=== PATIENT | female | born 1945 | race African-American/Black ===

== ENCOUNTER → 2017-03-13 | Outpatient (CLI) | payer OTHER, MEDICARE ==
[~2017-03-13] VITALS: Ht 170.2 cm; Wt 84.8 kg
[~2017-03-13] MED LIST: ADULT LOW DOSE81 MG; ADULT LOW DOSE81 MG PO; ASA5UEC; ASPIRIN EC81 M1 PO; ATENOLOL 25MG T25 M1 PG; ATENOLOL 25MG T25 M1 PO; BACTRIM DS TAB1 EACH PO; CALCIUM 600 WI1 EAC5 PO; CRESTOR10 MG PO; FISH OIL300 MG PO; GLUCOPHAGE500 MG PO; KLOR-CON 1010 MEQ PO; LEVEMIR SUBQ; NORCO 5-325 TA1 EACH PO; PRILOSEC 20 MG20 MG PO; PRINIVIL10 MG PO; VALIUM2 MG PO; VITAMIN D400 UNI1 PO; VITAMINC500 PO
--- NOTE | ~2017-03-13 | S ---
[facility] [place] [address] SURGICAL PATH RPT PROCEDURE Name: CAROL SWEENEY Room #: REG [facility]#: [id number] Admission: 03/13/17 Date of : 43 Discharge: Report #: [id number] Path Case #: [id number] PATHOLOGY REPORT COLLECTION DATE: 03/13/2017 RECEIVED DATE: 03/13/2017 SUBMITTING PHYS: Dr. Huey Husain OTHER PHYS: Dr. Elena Carmona ADDENDUM REPORT (Order Date: 03/14/2017 00:00) ADDENDUM COMMENT: Please see next page for scanned image of report submitted by [facility] corporate travel consultant pathologist, Dr. Jose Mercado. (IUV:amj; d/t: 04/10/2017) ELECTRONICALLY SIGNED BY: Nellie Ohara M.D. DATE/TIME:04/10/2017 12:48 SPECIMEN(S) RECEIVED: A.Lt kidney * * * * * * * * * * * * FINAL DIAGNOSIS: A. Kidney, left kidney, needle core biopsy: - Chronic interstitial nephritis, see comment. 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 - Interstitial fibrosis and tubular atrophy, moderate to severe. - Arteriosclerosis, severe. COMMENT: Possible etiologies of chronic interstitial nephritis include drug-induced hypersensitivity reaction as well as auto immune-laden disease. There is also a component of arterionephrosclerosis present in the background. This case was diagnosed at [facility]. Their report is [id number]. Please see separate report for details. (IUV:db; 04/10/2017) PATHOLOGIST: Nellie Ohara M.D. REPORT ELECTRONICALLY SIGNED BY: Nellie Ohara M.D. DATE/TIME: 04/10/2017 12:47 * * * * * * * * * * * * GROSS PATHOLOGY: [facility] [place] [address] SURGICAL PATH RPT PROCEDURE Name: [facility]EL[facility]OL [id number]: [facility] Date of : 43 Discharge: Report #: [id number] Path Case #: [id number] A. The specimen is received in formalin labeled "Carol Sweeney, left renal biopsy 1". Received is a needle core of pale pandya soft tissue measuring 1.2 cm in length by 0.1 cm in diameter. The specimen is forwarded to an outside laboratory for further processing. B. The specimen is received in Tha's fixative, labeled "Carol Sweeney, left renal biopsy 2". Received are 2 needle cores of pale pandya soft tissue measuring 0.8 and 1.5 cm in length, with each measuring 0.1 cm in diameter. The specimen is forwarded to an outside laboratory for direct medial fluorescence studies. (CAA; 03/13/2017) CLINICAL HISTORY: Acute renal failure, possible tubular neoplasm INITIAL CPT CODE(S): A; 50452 Professional services performed by [facility] at [address] [place] [address] Technical services performed by [facility] at [address] [place] [address], [address], [place] [address]. [facility] [address] [place] [address] PHONE: [phone] DIRECTOR: Luis Crocker M.D. * * * END OF REPORT * * *
[2017-03-13 10:00] VITALS: BP 179/79
[2017-03-13 10:28] LABS: ABSOLUTE NEUTROPHILS 3.9 thou/uL (1.4-8.2); BASOPHILS 0.5 % (0.0-2.0); EOSINOPHILS 2.4 % (0.0-3.0); HEMATOCRIT 22.7 % (37.0-47.0); HEMOGLOBIN 7.8 gm/dL (12.0-15.0); LYMPHOCYTES 39.1 % (24.0-44.0); MCH 31.7 pg (26.0-34.0); MCHC 34.3 g/dL (28.0-37.0); MCV 92.3 fL (80.0-100.0); MONOCYTES 6.3 % (1.0-8.0); PLATELET COUNT 203 thou/uL (150-400); POLYS 51.7 % (36.0-66.0); RBC 2.46 mil/uL (4.20-5.00); RDW 12.6 % (10.5-14.5); WBC 7.6 thou/uL (4.0-11.0)
[2017-03-13 10:32] LABS: MANUAL DIFF NO
[2017-03-13 10:38] VITALS: BP 165/71
[2017-03-13 11:14] VITALS: BP 144/74
[2017-03-13 11:32] VITALS: BP 140/58
[2017-03-13 11:36] VITALS: BP 159/73
[2017-03-13 11:41] VITALS: BP 131/62
== END | disposition home or self-care (01) ==
LOC: LAB 08:57
PROVIDERS: Internal Medicine Nephrology
DX: N17.0 Acute kidney failure with tubular necrosis (principal); I10 Essential (primary) hypertension; E11.9 Type 2 diabetes mellitus without complications; E78.00 Pure hypercholesterolemia, unspecified; Z79.4 Long term (current) use of insulin; D64.9 Anemia, unspecified; Z79.899 Other long term (current) drug therapy

== ENCOUNTER → 2017-03-20 | Outpatient (CLI) | payer OTHER, MEDICARE | LOC: BC 01:53 | DX: Z12.31 Encounter for screening mammogram for malignant neoplasm of breast (principal) ==

== ENCOUNTER → 2018-04-01 | Outpatient (CLI) | payer OTHER, MEDICARE | LOC: RAD 01:20 | DX: Z12.31 Encounter for screening mammogram for malignant neoplasm of breast (principal) ==

== ENCOUNTER → 2019-04-14 | Outpatient (CLI) | payer OTHER, MEDICARE | LOC: RAD 01:57 | DX: Z12.31 Encounter for screening mammogram for malignant neoplasm of breast (principal) ==

== ENCOUNTER → 2020-04-18 | Outpatient (CLI) | payer OTHER, MEDICARE | LOC: BC 10:13 | PROVIDERS: ATTEND Internal Medicine | DX: Z12.31 Encounter for screening mammogram for malignant neoplasm of breast (principal) ==

== ENCOUNTER → 2021-04-19 | Outpatient (CLI) | payer OTHER, MEDICARE | LOC: BC 13:14 → PAIN 14:47 | PROVIDERS: ATTEND Internal Medicine | DX: Z12.31 Encounter for screening mammogram for malignant neoplasm of breast (principal); N64.89 Other specified disorders of breast ==